=== PATIENT | male | born 1975 | race Caucasian/White ===

== ENCOUNTER 2020-05-10 19:42 | Emergency (ER) | payer BC ==
[2020-05-10 19:55] VITALS: TEMP 97
[2020-05-10] MEDS ORDERED: HYDROmorphone 0.5 MG/0.5 ML SYRINGE IVP STA ×3 (20:10→20:57)
[2020-05-10] MEDS ORDERED: ONDANSETRON 4 MG/2 ML VIAL IVP STA (20:10)
[2020-05-10] MEDS ORDERED: SODIUM CHLORIDE 0.9% 1,000 ML IV STA (20:11)
[2020-05-10 20:26] LABS: Appearance,Urine Clear (Clear); Bilirubin,Urine Negative (Negative); Blood,Urine Trace (Negative); Color,Urine Yellow; Glucose,Urine (UA) Negative (Negative); Ketones,Urine Negative (Negative); Leukocyte Esterase,Urine Negative (Negative); Mucus,Urine Rare /hpf; Nitrite,Urine Negative (Negative); PH, Urine 5.5 (5.0-8.0); Protein,Urine Negative (Negative); RBC,Urine 3 /hpf (0-5); Specific Gravity,Urine 1.023 (1.001-1.035); Urobilinogen,Urine <2.0 mg/dL (<2.0); WBC,Urine <1 /hpf (0-5)
--- NOTE | 2020-05-10 20:39 | ED ---
General Adult HPI - General Chief complaint: Abdominal Pain Stated complaint: Abdominal pain Time Seen by Provider: 05/10/20 19:52 Source: patient Mode of arrival: ambulatory Limitations: no limitations - History of Present Illness Initial comments: 44-year-old male without any past medical or surgical history presents to the emergency room for a chief complaint of right-sided abdominal pain. Patient states that he was about to get off his boat because he felt like he had to urinate when he started having intense right-sided abdominal pain. Patient states he has never had similar pain before. States the pain is making him nauseous. He is describing this pain as a sharp pain in the right side of the abdomen. Patient has no other complaints at this time including shortness of breath, chest pain, headache, or visual changes. - Related Data Previous Rx's Medication Instructions Recorded HYDROcodone/APAP 5-325MG [Blossom 1 tab PO Q6HR PRN #10 tab 05/10/20 5-325] Ibuprofen [Motrin] 600 mg PO Q6HR PRN #20 tab 05/10/20 Ondansetron [Zofran ODT] 4 mg PO Q8HR PRN #15 tab 05/10/20 Tamsulosin [Flomax] 0.4 mg PO DAILY #20 cap 05/10/20 Allergies Allergy/AdvReac Type Severity Reaction Status Date / Time Fish Containing Products Allergy Itching Verified 05/10/20 19:55 [Fish] Review of Systems ROS Statement: Those systems with pertinent positive or pertinent negative responses have been documented in the HPI. ROS Other: All systems not noted in ROS Statement are negative. Past Medical History Past Medical History: No Reported History Past Surgical History: No Surgical Hx Reported Past Psychological History: No Psychological Hx Reported Smoking Status: Never smoker Past Alcohol Use History: None Reported Past Drug Use History: None Reported General Exam Limitations: no limitations General appearance: alert, in no apparent distress Head exam: Present: atraumatic, normocephalic, normal inspection Eye exam: Present: normal appearance, PERRL, EOMI. Absent: scleral icterus, conjunctival injection, periorbital swelling ENT exam: Present: normal exam, mucous membranes moist Neck exam: Present: normal inspection, full ROM. Absent: tenderness, meningismus, lymphadenopathy Respiratory exam: Present: normal lung sounds bilaterally. Absent: respiratory distress, wheezes, rales, rhonchi, stridor Cardiovascular Exam: Present: regular rate, normal rhythm, normal heart sounds. Absent: systolic murmur, diastolic murmur, rubs, gallop, clicks GI/Abdominal exam: Present: soft, normal bowel sounds. Absent: distended, tenderness, guarding, rebound, rigid Neurological exam: Present: alert Course Vital Signs 05/10/20 05/10/20 05/10/20 19:53 20:53 22:06 Temperature 97 F L Pulse Rate 69 64 Respiratory 16 28 H 20 Rate Blood Pressure 144/89 157/118 120/69 O2 Sat by Pulse 98 99 Oximetry - Reevaluation(s) Reevaluation #1: 05/10/20 21:10 First dose of Toradol was wasted, therefore nurse requested I order a second dose. Medical Decision Making - Medical Decision Making Patient presents with severe right-sided abdominal pain. Abdomen nontender. Patient given multiple doses of pain medication. CBC CMP were unremarkable urinalysis did show trace blood with [address] abdomen and pelvis was obtained which demonstrated right-sided hydronephrosis with probable 2 mm calcification at the UVJ. There are additional calcifications within the upper and lower pole of the right kidney which was discussed with patient. X-ray KUB was ordered for urology. Patient reevaluated and has had significant improvement in pain. He is now resting comfortably. Patient will be treated outpatient and will follow up with urology. I did discuss return parameters including worsening pain or inability to tolerate oral intake. - Lab Data Result diagrams: 05/10/20 20:13 05/10/20 20:13 Lab Results 05/10/20 05/10/20 05/10/20 Range/Units 20:13 20:13 20:13 WBC 7.4 (3.8-10.6) k/uL RBC 4.72 (4.30-5.90) m/uL Hgb 15.2 (13.0-17.5) gm/dL Hct 43.8 (39.0-53.0) % MCV 92.7 (80.0-100.0) fL MCH 32.1 (25.0-35.0) pg MCHC 34.7 (31.0-37.0) g/dL RDW 11.8 (11.5-15.5) % Plt Count 266 (150-450) k/uL Neutrophils % 45 % Lymphocytes % 44 % Monocytes % 5 % Eosinophils % 2 % Basophils % 0 % Neutrophils # 3.4 (1.3-7.7) k/uL Lymphocytes # 3.2 (1.0-4.8) k/uL Monocytes # 0.4 (0-1.0) k/uL Eosinophils # 0.1 (0-0.7) k/uL Basophils # 0.0 (0-0.2) k/uL Sodium 138 (137-145) mmol/L Potassium 4.5 (3.5-5.1) mmol/L Chloride 105 (98-107) mmol/L Carbon Dioxide 23 (22-30) mmol/L Anion Gap 10 mmol/L BUN 17 (9-20) mg/dL Creatinine 1.05 (0.66-1.25) mg/dL Est GFR (CKD-EPI)AfAm >90 (>60 ml/min/1.73 sqM) Est GFR (CKD-EPI)NonAf 87 (>60 ml/min/1.73 sqM) Glucose 109 H (74-99) mg/dL Calcium 9.9 (8.4-10.2) mg/dL Total Bilirubin 0.3 (0.2-1.3) mg/dL AST 44 (17-59) U/L ALT 40 (4-49) U/L Alkaline Phosphatase 52 (38-126) U/L Total Protein 6.5 (6.3-8.2) g/dL Albumin 4.4 (3.5-5.0) g/dL Amylase 60 (30-110) U/L Lipase 85 (23-300) U/L Urine Color Urine Appearance (Clear) Urine pH (5.0-8.0) Ur Specific [place] (1.001-1.035) Urine Protein (Negative) Urine Glucose (UA) (Negative) Urine Ketones (Negative) Urine Blood (Negative) Urine Nitrite (Negative) Urine Bilirubin (Negative) Urine Urobilinogen (<2.0) mg/dL Ur Leukocyte Esterase (Negative) Urine RBC (0-5) /hpf Urine WBC (0-5) /hpf Urine Mucus (None) /hpf 05/10/ Range/Units 20:16 WBC (3.8-10.6) k/uL RBC (4.30-5.90) m/uL Hgb (13.0-17.5) gm/dL Hct (39.0-53.0) % MCV (80.0-100.0) fL MCH (25.0-35.0) pg MCHC (31.0-37.0) g/dL RDW (11.5-15.5) % Plt Count (150-450) k/uL Neutrophils % % Lymphocytes % % Monocytes % % Eosinophils % % Basophils % % Neutrophils # (1.3-7.7) k/uL Lymphocytes # (1.0-4.8) k/uL Monocytes # (0-1.0) k/uL Eosinophils # (0-0.7) k/uL Basophils # (0-0.2) k/uL Sodium (137-145) mmol/L Potassium (3.5-5.1) mmol/L Chloride (98-107) mmol/L Carbon Dioxide (22-30) mmol/L Anion Gap mmol/L BUN (9-20) mg/dL Creatinine (0.66-1.25) mg/dL Est GFR (CKD-EPI)AfAm (>60 ml/min/1.73 sqM) Est GFR (CKD-EPI)NonAf (>60 ml/min/1.73 sqM) Glucose (74-99) mg/dL Calcium (8.4-10.2) mg/dL Total Bilirubin (0.2-1.3) mg/dL AST (17-59) U/L ALT (4-49) U/L Alkaline Phosphatase (38-126) U/L Total Protein (6.3-8.2) g/dL Albumin (3.5-5.0) g/dL Amylase (30-110) U/L Lipase (23-300) U/L Urine Color Yellow Urine Appearance Clear (Clear) Urine pH 5.5 (5.0-8.0) Ur Specific [place] 1.023 (1.001-1.035) Urine Protein Negative (Negative) Urine Glucose (UA) Negative (Negative) Urine Ketones Negative (Negative) Urine Blood Trace H (Negative) Urine Nitrite Negative (Negative) Urine Bilirubin Negative (Negative) Urine Urobilinogen <2.0 (<2.0) mg/dL Ur Leukocyte Esterase Negative (Negative) Urine RBC 3 (0-5) /hpf Urine WBC <1 (0-5) /hpf Urine Mucus Rare H (None) /hpf Disposition Clinical Impression: Ureterolithiasis Disposition: HOME SELF-CARE Condition: Good Instructions (If sedation given, give patient instructions): Kidney Stones (ED) Additional Instructions: Please take Motrin for pain. If pain is severe take Blossom. However for tonight since it is late you were given a packet of Tylenol 3 instead of the Blossom. Take Zofran as needed for nausea. Take Flomax as directed. Please follow-up with urology return to the emergency room for any worsening symptoms such as severe pain or inability to tolerate oral intake.. Prescriptions: Tamsulosin [Flomax] 0.4 mg PO DAILY #20 cap Ibuprofen [Motrin] 600 mg PO Q6HR PRN #20 tab PRN Reason: Pain HYDROcodone/APAP 5-325MG [Blossom 5-325] 1 tab PO Q6HR PRN #10 tab PRN Reason: Pain Ondansetron [Zofran ODT] 4 mg PO Q8HR PRN #15 tab PRN Reason: Nausea Is patient prescribed a controlled substance at d/c from ED?: Yes When asked, does pt state using other controlled substances?: No If prescribed controlled substance>3 days was MAPS reviewed?: Prescribed <3 Days If opioid is for acute pain is fill amount 7 days or less?: Yes If Rx opioid, was Start Talking consent form obtained?: Yes Referrals: Danny Gr DO [Primary Care Provider] - 1-2 days Rohit Gale MD [STAFF PHYSICIAN] - 1-2 days Time of Disposition: 22:04
[2020-05-10 20:43] LABS: ALT 40 U/L (4-49); AST 44 U/L (17-59); African American GFR (CKD) >90 (>60 ml/min/1.73 sqM); Albumin 4.4 g/dL (3.5-5.0); Alkaline Phosphatase 52 U/L (38-126); Anion Gap 10 mmol/L; Blood Urea Nitrogen 17 mg/dL (9-20); Calcium 9.9 mg/dL (8.4-10.2); Carbon Dioxide 23 mmol/L (22-30); Chloride 105 mmol/L (98-107); Glucose 109 mg/dL (74-99); Non-African American GFR(CKD) 87 (>60 ml/min/1.73 sqM); Potassium 4.5 mmol/L (3.5-5.1); Sodium 138 mmol/L (137-145); Total Bilirubin 0.3 mg/dL (0.2-1.3); Total Protein 6.5 g/dL (6.3-8.2)
[2020-05-10 20:45] LABS: Basophils % (A) 0 %; Eosinophils # (A) 0.1 k/uL (0-0.7); Eosinophils % (A) 2 %; HCT 43.8 % (39.0-53.0); HGB 15.2 gm/dL (13.0-17.5); Lymphocytes # (A) 3.2 k/uL (1.0-4.8); Lymphocytes % (A) 44 %; MCH 32.1 pg (25.0-35.0); MCHC 34.7 g/dL (31.0-37.0); MCV 92.7 fL (80.0-100.0); Monocytes # (A) 0.4 k/uL (0-1.0); Monocytes % (A) 5 %; Neutrophils # (A) 3.4 k/uL (1.3-7.7); Neutrophils % (A) 45 %; Platelet Count 266 k/uL (150-450); RBC 4.72 m/uL (4.30-5.90); RDW 11.8 % (11.5-15.5); WBC 7.4 k/uL (3.8-10.6)
--- NOTE | 2020-05-10 21:04 | CT ---
EXAMINATION TYPE: CT abdomen pelvis w con DATE OF EXAM: 05/10/2020 COMPARISON: 9 HISTORY: Abdominal pain. CT DLP: 1302.9 mGycm Automated exposure control for dose reduction was used. CONTRAST: Performed with IV Contrast, patient injected with 100 mL of Isovue 370. Images obtained from the diaphragm to the floor the pelvis with IV contrast. Lung bases are clear. There is no pleural effusion. Heart size is normal. There is no pericardial eff usion. Liver spleen stomach pancreas gallbladder appear normal. Bile ducts are not dilated. There is no adrenal mass. Kidneys have normal size. There is right side hydronephrosis with delayed right side pyelogram. There is mild right-sided periureteral edema involving upper ureter. There is a faint 2 m m calcification in the pelvis on the right side that could be a stone at the ureterovesical junction. There is probably a 2 mm calculus upper pole right kidney. There is 1 mm calculus lower pole right k idney. There is no inguinal hernia. Bladder distends smoothly. There is no evidence of free air. There is no ascites. There is no sign of bowel obstruction. There is no mesenteric edema. Appendix is posterior and appears normal. Lumbar vertebra have normal alignment. Disc spaces are normal. Posterior elements are intact. Bony pelvis is intact. IMPRESSION: Right-sided hydronephrosis with probable small calculus obstructing at the right ureteral vesicle shoaib ction.
[2020-05-10] MEDS ORDERED: KETOROLAC 30 MG/ML 1 ML VIAL IVP STA ×2 (21:05→21:09)
[2020-05-10 21:06] LABS: Amylase 60 U/L (30-110)
--- NOTE | 2020-05-10 22:05 | XR ---
EXAMINATION TYPE: XR KUB DATE OF EXAM: 05/10/2020 COMPARISON: NONE HISTORY: Right-sided pain TECHNIQUE: 2 views upright FINDINGS: There is no sign of intestinal obstruction or pneumoperitoneum. There is contrast in both k idneys and ureters. Bladder distends smoothly with contrast. Fecal pattern is normal. There is no belinda dence of a mass. Right ureter is larger than the left. There is some fullness of the right renal pelv is. IMPRESSION: There is holdup of contrast in the right upper collecting system and consistent with part ial obstruction at the ureteral vesicle junction.
[2020-05-10] MEDS ORDERED: ACET/COD 300 MG/30 MG STARTER PACK 6 TAB BTL PO STA (22:06)
[2020-05-10 22:08] VITALS: BP 120/69; PULSE 64; RESP 20
== END 2020-05-10 22:17 | disposition home or self-care (01) ==
LOC: EC 19:42
DX: N13.2 Hydronephrosis with renal and ureteral calculous obstruction (principal); Z91.013 Allergy to seafood
CPT/HCPCS: 36415; 80053; 82150; 83690; 85025; 81001; 74018; 74177; 99285; 96374; 96375 ×2; 96376; 96361 ×2; J2405; J1885; J1170; Q9967

== ENCOUNTER → 2020-07-17 | Outpatient (CLI) | payer BC ==
[2020-07-18 06:08] LABS: Prostate Specific Antigen 0.3 ng/mL (0.0-2.5)
== END | disposition home or self-care (01) ==
LOC: LABWHC1 15:50
PROVIDERS: ATTEND Physical Medicine & Rehabilitation
DX: R53.83 Other fatigue (principal)
CPT/HCPCS: 36415; 84153; 84402; 84403